=== PATIENT | male | born 1945 | race Caucasian/White ===

== ENCOUNTER 2021-03-09 14:34 | Observation (INO) | payer MEDICARE, BC ==
[~2021-03-09] VITALS: Ht 172.7 cm; Wt 84.4 kg
[2021-03-09] MEDS ORDERED: MECLIZINE 25 MG TABLET PO ONE (15:40)
--- NOTE | 2021-03-09 16:01 | REPVR ---
PROCEDURE INFORMATION: Exam: CT Head Without Contrast Exam date and time: 03/09/2021 3:23 PM Age: 76 years old Clinical indication: Dizziness TECHNIQUE: Imaging protocol: Computed tomography of the head without contrast. Radiation optimization: All CT scans at this facility use at least one of these dose optimization techniques: automated exposure control; mA and/or kV adjustment per patient size (includes targeted exams where dose is matched to clinical indication); or iterative reconstruction. COMPARISON: No relevant prior studies available. FINDINGS: Brain: The brain demonstrates diffuse volume loss. There is white matter hypodensity most consistent with chronic small vessel ischemic change. No visible evolving territorial infarct. No hemorrhage. Cerebral ventricles: The ventricles are enlarged in keeping with volume loss. Paranasal sinuses: Visualized sinuses are unremarkable. No fluid levels. Mastoid air cells: Visualized mastoid air cells are well aerated. Orbital cavity: Thinning of the lenses of the globes consistent with prior lens surgery. Bones/joints: Unremarkable. No acute fracture. Soft tissues: Unremarkable. IMPRESSION: No acute intracranial abnormality seen. Electronically signed by: Gloria Lara On 03/09/2021 16:00:38 PM
[2021-03-09] MEDS ORDERED: LOSA100T50 PO ×2 (16:20→22:21)
[2021-03-09] MEDS ORDERED: DILT240C82 PO (16:20)
[2021-03-09] MEDS ORDERED: COMB0.2S OS (16:20)
[2021-03-09] MEDS ORDERED: COLC0.6T47 PO (16:20)
[2021-03-09 16:21] LABS: BASO # 0.1 10^3/uL (0.0-0.2); BASO % 0.9 % (0.0-1.0); EOS # 0.3 10^3/uL (0.0-0.5); HEMATOCRIT 40.9 % (42.0-52.0); HEMOGLOBIN 13.1 g/dl (13.5-17.5); LYMPH % 17.1 % (24.0-44.0); MEAN CORPUSCULAR HEMOGLOBIN 32.7 pg (27.0-33.0); MONO # 0.5 10^3/uL (0.0-0.8); MONO % 9.4 % (2.0-8.0); NEUTROPHILS # 3.8 10^3/uL (1.5-8.5); NEUTROPHILS % 66.9 % (36.0-66.0); PLATELET COUNT, AUTOMATED 216 10^3/uL (150-450); RED BLOOD COUNT 4.01 10^6/uL (4.30-6.10); WHITE BLOOD COUNT 5.6 10^3/uL (4.0-10.0)
[2021-03-09 16:51] LABS: ALBUMIN 3.3 GM/DL (3.2-5.2); ALT/SGPT 28 U/L (12-78); BILIRUBIN,DIRECT 0.1 MG/DL (0.0-0.2); BILIRUBIN,TOTAL 0.5 MG/DL (0.2-1.0); BLOOD UREA NITROGEN 19 MG/DL (7-18); CALCIUM LEVEL 8.9 MG/DL (8.8-10.2); CARBON DIOXIDE LEVEL 26 MEQ/L (21-32); CHLORIDE LEVEL 111 MEQ/L (98-107); CK-MB VALUE MASS 1.8 NG/ML (<3.6); CPK CREATINE PHOSPHOKINASE 99 U/L (39-308); GLOMERULAR FILTRATION RATE > 60.0 (>42); GLUCOSE, FASTING 125 MG/DL (70-100); MAGNESIUM LEVEL 2.4 MG/DL (1.8-2.4); MB/CK RELATIVE INDEX 1.82 (< OR =4); POTASSIUM SERUM 4.2 MEQ/L (3.5-5.1); SODIUM LEVEL 144 MEQ/L (136-145); TOTAL PROTEIN 6.5 GM/DL (6.4-8.2); TROPONIN I < 0.02 NG/ML (< 0.10)
--- NOTE | 2021-03-09 17:05 | ECGEPIP ---
[facility] - ED Test Date: 2021-03-09 Pat Name: KYE TAMEZ Department: Room: - Gender: Male Gate Watchman: BRENT : 1945 Requested By: KYE CADENA Order Number: [id number] Reading MD: Kye Ríos Measurements Intervals [place] Rate: 68 P: 57 WV: 206 QRS: 71 QRSD: 148 T: 55 QT: 410 QTc: 435 Interpretive Statements Normal sinus rhythm Right bundle branch block Comparison tracing not on file Electronically Signed on 03-09-2021 17:05:06 EDT by Kye Ríos
--- NOTE | 2021-03-09 18:26 | REPVR ---
PROCEDURE INFORMATION: Exam: MRA Head Without Contrast; Arteriography Exam date and time: 03/09/2021 3:15 PM Age: 76 years old Clinical indication: Vertigo; Additional info: Dizziness. Given the clinical concern for stroke, evaluation of the arteries was performed. TECHNIQUE: Imaging protocol: Magnetic resonance angiography head without contrast. Exam focused on the arteries. COMPARISON: 1. CT Head without contrast 03/09/2021 3:21 PM 2. MRI-Brain without Contrast 03/09/2021 5:36:31 PM FINDINGS: ANTERIOR CIRCULATION: Right internal carotid artery: Intracranial segment is patent with no significant stenosis. No significant aneurysm. A 1-2 mm conical outpouching from the supraclinoid right DEVIN, may represent a vascular infundibulum. Right middle cerebral artery: No occlusion or significant stenosis. No aneurysm. Right anterior cerebral artery: No occlusion or significant stenosis. No aneurysm. Left internal carotid artery: Intracranial segment is patent with no significant stenosis. No aneurysm. Left middle cerebral artery: No occlusion or significant stenosis. No aneurysm. Left anterior cerebral artery: No occlusion or significant stenosis. No aneurysm. POSTERIOR CIRCULATION: Right vertebral artery: Developmentally hypoplastic, ends as PICA. No occlusion or significant stenosis. No aneurysm. Left vertebral artery: Dominant. No occlusion or significant stenosis. No aneurysm. Basilar artery: No occlusion or significant stenosis. No aneurysm. Right posterior cerebral artery: No occlusion or significant stenosis. No aneurysm. Left posterior cerebral artery: No occlusion or significant stenosis. No aneurysm. IMPRESSION: No proximal intracranial arterial occlusion. Electronically signed by: Gloria Lara On 03/09/2021 18:26:18 PM
--- NOTE | 2021-03-09 18:31 | REPVR ---
PROCEDURE INFORMATION: Exam: MR Head Without Contrast Exam date and time: 03/09/2021 3:15 PM Age: 76 years old Clinical indication: Dizziness TECHNIQUE: Imaging protocol: MR of the head without contrast. COMPARISON: CT Head without contrast 03/09/2021 3:21 PM FINDINGS: Brain: No acute infarct identified on the diffusion-weighted imaging. No parenchymal hemorrhage. The brain demonstrates mild generalized volume loss. Slight patchy increased signal intensity in the periventricular white matter on the T2 weighted imaging most likely represents trace chronic small vessel ischemic change. No significant white matter disease for the patient's age. Physiologic widening of the left precentral sulcus versus an incidental arachnoid cyst. Cerebral ventricles: The ventricles are mildly enlarged in keeping with volume loss. Bones/joints: Unremarkable. Paranasal sinuses: Mild right sphenoid sinus mucosal thickening. No acute sinusitis. Mastoid air cells: Normal as visualized. No mastoid effusion. Orbital cavity: Thinning of the lenses of the globes consistent with prior lens surgery. Soft tissues: Unremarkable. IMPRESSION: No evidence of acute infarct. Electronically signed by: Gloria Lara On 03/09/2021 18:31:22 PM
[2021-03-09] MEDS ORDERED: hydrALAZINE 20MG/ML 1ML VIAL (J0360 PER 20MG) IV STA ×2 (19:26→20:19)
[2021-03-09 20:58] LABS: RSV AMPLIFICATION NEGATIVE (NEGATIVE)
[2021-03-09] MEDS ORDERED: ASPIRIN 325 MG TAB PO SCH (21:00)
[2021-03-09] MEDS ORDERED: FIBER-CON 625 MG TAB PO SCH (21:00)
[2021-03-09] MEDS ORDERED: ACETAMINOPHEN TAB 650MG DOSE (2X325MG) PO PRN (21:25)
[2021-03-09] MEDS ORDERED: MOM 30ML SUSPENSION UDC PO PRN (21:25)
[2021-03-09] MEDS ORDERED: MAALOX 30 ML SUSP *UDC PO PRN (21:25)
[2021-03-09] MEDS ORDERED: hydrALAZINE 20MG/ML 1ML VIAL (J0360 PER 20MG) IV PRN (21:25)
--- NOTE | 2021-03-09 21:45 | HPEPDOC ---
[facility] Medical History & Physical Date of Admission Mar 09, 2021 Date of Service: Mar 09, 2021 Attending Physician: KEYLA GAUTAM MD History and Physical CHIEF COMPLAINT: Dizziness with near syncope HISTORY OF PRESENT ILLNESS: Mr. Christian is a 76-year-old male who presented to the ER with complaints of dizziness and near syncope. The patient states he felt dizzy and off balance when he tried to get out of bed Saturday morning. He also described a feeling of "tightness" in his cheeks. The feeling persisted throughout the morning, but eventually resolved. He was in his normal state of health until this morning when he was walking with his and neighbor. The patient is staying in the area for the summer. He states this morning he suddenly staggered to the left and almost fell. After that incident, he noticed that the dizziness have returned. After discussions with his it was felt it was in his best interest to be evaluated in the ER. He has a history of essential hypertension and was noted to have a blood pressure of 191/97 on initial evaluation. Patient noted that he was previously taking losartan and hydrochlorothiazide combination pill. He is not sure when that prescription changed and was only made aware when pharmacy discussed medication reconciliation with him this evening. CT of the head was negative for any acute pathology. MRI showed no acute infarct. MRA showed no intracranial arterial occlusion. Labs were essentially unremarkable. Patient was given several doses of hydralazine in the ER with blood pressure noted as high as 209/96. Patient was also tachycardic during my evaluation with heart rate of 117. PAST MEDICAL HISTORY: 1. Hypertension. 2. Gout. 3. Benign prostatic hypertrophy. 4. Chronic kidney disease. 5. Anemia 6. Gastroesophageal reflux disease PAST SURGICAL HISTORY: 1. Hernia repair. 2. Bilateral cataracts SOCIAL HISTORY: Tobacco use: Quit 25 years ago ETOH: Patient states during the summer. He is drinking at least 6-8 beers per night. When he has at home. He does not drink during the week but admits to at least 6-8 beers daily on the weekends. Denies any previous symptoms of withdrawal. Illicit drug use: Negative Patient lives with: His FAMILY HISTORY: Patient's father with a history of lung cancer and coronary artery disease at the age of 58. His mother in her 70s with hypertension, stroke and aneurysm. REVIEW OF SYSTEMS: Complete 10 point review systems is negative except as noted above PHYSICAL EXAMINATION: Patient is seen in the ER, sitting up on the stretcher. He is alert and oriented x 3. HEENT is WNL. There is no facial droop. Tongue is midline. Speech is clear and easily understood. Neck is supple. Lungs are clear to auscultation. Heart regular rate and rhythm without murmur. Abdomen is soft, non-tender to palp ation with bowel sounds positive. Extremities with good ROM and strength equal bilaterally. No lower extremity edema. Pedal pulses are positive. Skin is warm and dry with no obvious rash or lesion. Neuro: grossly intact. Psych: He is pleasant and cooperative. ASSESSMENT AND PLAN: 1. Hypertensive emergency. Will continue home dose of losartan. May need to consider re-adding HCTZ. Will add when necessary hydralazine. Continue to adjust medications as needed based on blood pressure trends. 2. Dizziness with near syncope. CT, MRI and MRA negative. Probably secondary to hypertensive emergency, but there is the possibility of BPPV. Will ask physical therapy to evaluate. 3. Benign prostatic hypertrophy. Patient stated he was on Flomax but this is not listed in the medication reconciliation. We'll try to verify that medication and continue. 4. Gastroesophageal reflux disease. Continue Pepcid. 5. Gout. Resume probenecid and colchicine at discharge. 6. DVT prophylaxis. Will add Lovenox. CODE STATUS: CODE STATUS was discussed with the patient desires to be considered full code. He states his and daughters would act as his surrogates if he were unable to make his own decisions. Patient is considered high risk of further deterioration including syncope and collapse, or possible stroke. He is admitted for close observation and further evaluation and expected to remain at least one midnight. Vital Signs Vital Signs Date Time Temp Pulse Resp B/P (MAP) Pulse Ox O2 Delivery O2 Flow Rate FiO2 03/09/21 20:55 170/80 03/09/21 20:07 90 16 98 Room Air 03/09/21 19:05 98.6 Laboratory Data Labs 24H Laboratory Tests 2 03/09/21 16:10: Immature Granulocyte % (Auto) 0.7, Neutrophils (%) (Auto) 66.9H, Lymphocytes (%) (Auto) 17.1L, Monocytes (%) (Auto) 9.4H, Eosinophils (%) (Auto) 5.0H, Basophils (%) (Auto) 0.9, Neutrophils # (Auto) 3.8, Lymphocytes # (Auto) 1.0L, Monocytes # (Auto) 0.5, Eosinophils # (Auto) 0.3, Basophils # (Auto) 0.1, Nucleated Red Blood Cells % (auto) 0.0, Anion Gap 7L, Glomerular Filtration Rate > 60.0, Calcium Level 8.9, Magnesium Level 2.4, Total Bilirubin 0.5, Direct Bilirubin 0.1, Aspartate Amino Transf (AST/SGOT) 17, Alanine Aminotransferase (ALT/SGPT) 28, Alkaline Phosphatase 71, Total Creatine Kinase 99, Creatine Kinase MB 1.8, Creatine Kinase MB Relative Index 1.82, Troponin I < 0.02, Total Protein 6.5, Albumin 3.3, Albumin/Globulin Ratio 1.0, Thyroid Stimulating Hormone (TSH) 1.810 03/09/21 20:07: Coronavirus (COVID-19)(PCR) NEGATIVE, Influenza Type A (RT-PCR) NEGATIVE, Influenza Type B (RT-PCR) NEGATIVE, Respiratory Syncytial Virus (PCR) NEGATIVE CBC/BMP Laboratory Tests 03/09/21 16:10 Home Medications Scheduled Aspirin (Aspirin) 325 Mg Tablet, 325 MG PO QHS Brimonidine Tartrate/Timolol (Combigan 0.2%-0.5% Eye Drops) 5 Ml Drops, 1 DROP OU BID Calcium Polycarbophil (Fibercon) 625 Mg Tablet, 1,250 MG PO QHS Diltiazem HCl (Dilt-Xr) 240 Mg Cap.er.deg, 240 MG PO DAILY Famotidine (Pepcid) 20 Mg Tablet, 20 MG PO AC Losartan Potassium (Losartan Potassium) 100 Mg Tablet, 100 MG PO DAILY Multivitamins (Thera M Plus Tablet) 1 Each Tablet, 1 TAB PO QHS Probenecid/Colchicine (Probenecid-Colchicine Tabs) 1 Each Tablet, 1 TAB PO QHS Allergies Coded Allergies: Sulfa (Sulfonamide Antibiotics) (Verified Allergy, Unknown, 03/09/21) "I was a baby I don't know". A-FIB/CHADSVASC A-FIB History Current/History of A-Fib/PAF?: No MARYANN RODRIGUEZ Mar 09, 2021 21:45
[2021-03-09] MEDS ORDERED: ASPI-1 PO (22:21)
[2021-03-09] MEDS ORDERED: PEPC1TAB5 PO (22:21)
[2021-03-09] MEDS ORDERED: DILT240C28 PO (22:21)
[2021-03-09] MEDS ORDERED: COMB0.2S OU (22:21)
[2021-03-09] MEDS ORDERED: FIBE625T PO (22:21)
[2021-03-09] MEDS ORDERED: VITMTA PO (22:21)
[2021-03-09] MEDS ORDERED: COLBTA PO (22:21)
[2021-03-10 06:21] VITALS: BP 167/84
[2021-03-10 06:53] LABS: HEMOGLOBIN 13.6 g/dl (13.5-17.5); MEAN CORPUSCULAR HEMOGLOBIN 33.6 pg (27.0-33.0); MEAN CORPUSCULAR HGB CONC 33.2 g/dl (32.0-36.5); MEAN CORPUSCULAR VOLUME 101.2 fl (80.0-96.0); PLATELET COUNT, AUTOMATED 194 10^3/uL (150-450); RED BLOOD COUNT 4.05 10^6/uL (4.30-6.10); WHITE BLOOD COUNT 6.1 10^3/uL (4.0-10.0)
[2021-03-10 07:23] LABS: BLOOD UREA NITROGEN 19 MG/DL (7-18); CALCIUM LEVEL 8.6 MG/DL (8.8-10.2); CARBON DIOXIDE LEVEL 27 MEQ/L (21-32); CHLORIDE LEVEL 111 MEQ/L (98-107); CREATININE FOR GFR 1.22 MG/DL (0.70-1.30); GLOMERULAR FILTRATION RATE > 60.0 (>42); GLUCOSE, FASTING 100 MG/DL (70-100); MAGNESIUM LEVEL 2.4 MG/DL (1.8-2.4); POTASSIUM SERUM 4.2 MEQ/L (3.5-5.1); SODIUM LEVEL 142 MEQ/L (136-145)
[2021-03-10 08:15] VITALS: BP 156/90
[2021-03-10] MEDS: FAMOTIDINE 20 MG TAB PO SCH ×2 (08:27→12:09)
[2021-03-10 08:28] VITALS: BP 156/90
[2021-03-10] MEDS ORDERED: ENOXAPARIN 40MG/0.4ML SYRINGE (J1650 PER 10MG) SC SCH (09:00)
[2021-03-10] MEDS ORDERED: LOSARTAN 50MG TABLET PO SCH (09:00)
--- NOTE | 2021-03-10 11:21 | DS.PDOC ---
Discharge Summary General Date of Admission Mar 09, 2021 at 14:35 Date of Discharge 03/10/21 Discharge Summary PROCEDURES PERFORMED DURING STAY: [None]. DISCHARGE DIAGNOSES: Left-sided BPPV SECONDARY DIAGNOSIS: Hypertension. Gout. Benign prostatic hypertrophy. Chronic kidney disease. Anemia Gastroesophageal reflux disease COMPLICATIONS/CHIEF COMPLAINT: Hypertensive Emergency. HOSPITAL COURSE: Mr. Christian is a 76-year-old male who presented to the ER with complaints of dizziness and near syncope. The patient states he felt dizzy and off balance when he tried to get out of bed Saturday morning. He also described a feeling of "tightness" in his cheeks. The feeling persisted throughout the morning, but eventually resolved. He was in his normal state of health until the morning of admission when he was walking with his and neighbor. The patient is staying in the area for the summer. He states this morning he suddenly staggered to the left and almost fell. After that incident, he noticed that the dizziness have returned. After discussions with his it was felt it was in his best interest to be evaluated in the ER. He has a history of essential hypertension and was noted to have a blood pressure of 191/97 on initial evaluation. Patient noted that he was previously taking losartan and h ydrochlorothiazide combination pill. He is not sure when that prescription changed and was only made aware when pharmacy discussed medication reconciliation with him this evening. CT of the head was negative for any acute pathology. MRI showed no acute infarct. MRA showed no intracranial arterial oc clusion. Labs were essentially unremarkable. Patient was admitted for hypertensive urgency which has resolved overnight. This morning he was evaluated by physical therapy and was found to have left-sided BPPV. Physical therapy recommended out patient PT. at present patient does not have any sympt oms his blood pressure is controlled and he is being discharged home DISCHARGE MEDICATIONS: Please see below. ALLERGIES: Please see below. PHYSICAL EXAMINATION ON DISCHARGE: VITAL SIGNS: Please see below. GENERAL: Alert oriented sitting up in bed in no discomfort HEENT: Normocephalic, atraumatic, moist mucous membranes, anicteric eyes NECK: Supple, no JVD CARDIOVASCULAR EXAMINATION: Normal S1, normal S2, regular heart sounds, no rub murmur or gallop RESPIRATORY EXAMINATION: Bilateral vesicular breath sounds no added sounds ABDOMINAL EXAMINATION: Soft nontender bowel sounds normal EXTREMITIES: No edema SKIN: No rash or lesion NEUROLOGICAL EXAMINATION: No focal neuro deficit, speech normal, gait normal LABORATORY DATA: Please see below. Imaging: MRI of brain: Brain: No acute infarct identified on the diffusion-weighted imaging. No parenchymal hemorrhage. The brain demonstrates mild generalized volume loss. Slight patchy increased signal intensity in the periventricular white matter on the T2 weighted imaging most likely represents trace chronic small vessel ischemic change. No significant white matter disease for the patient's age. Physiologic widening of the left precentral sulcus versus an incidental arachnoid cyst. Cerebral ventricles: The ventricles are mildly enlarged in keeping with volume loss. Bones/joints: Unremarkable. Paranasal sinuses: Mild right sphenoid sinus mucosal thickening. No acute sinusitis. Mastoid air cells: Normal as visualized. No mastoid effusion. Orbital cavity: Thinning of the lenses of the globes consistent with prior lens surgery. Soft tissues: Unremarkable. IMPRESSION: No evidence of acute infarct. MRA of brain: ANTERIOR CIRCULATION: Right internal carotid artery: Intracranial segment is patent with no significant stenosis. No significant aneurysm. A 1-2 mm conical outpouching from the supraclinoid right DEVIN, may represent a vascular infundibulum. Right middle cerebral artery: No occlusion or significant stenosis. No aneurysm. Right anterior cerebral artery: No occlusion or significant stenosis. No aneurysm. Left internal carotid artery: Intracranial segment is patent with no significant stenosis. No aneurysm. Left middle cerebral artery: No occlusion or significant stenosis. No aneurysm. Left anterior cerebral artery: No occlusion or significant stenosis. No aneurysm. POSTERIOR CIRCULATION: Right vertebral artery: Developmentally hypoplastic, ends as PICA. No occlusion or significant stenosis. No aneurysm. Left vertebral artery: Dominant. No occlusion or significant stenosis. No aneurysm. Basilar artery: No occlusion or significant stenosis. No aneurysm. Right posterior cerebral artery: No occlusion or significant stenosis. No aneurysm. Left posterior cerebral artery: No occlusion or significant stenosis. No aneurysm. IMPRESSION: No proximal intracranial arterial occlusion. ACTIVITY: [As tolerated]. DIET: Regular DISCHARGE PLAN: Home DISPOSITION: . DISCHARGE INSTRUCTIONS: Follow-up with PMD in 2 weeks Continue outpatient physical therapy DISCHARGE CONDITION: [Stable]. TIME SPENT ON DISCHARGE: 35 minutes. Vital Signs/I&Os Vital Signs Date Time Temp Pulse Resp B/P (MAP) Pulse Ox O2 Delivery O2 Flow Rate FiO2 03/10/21 08:28 156/90 03/10/21 08:28 84 03/10/21 08:15 97.4 18 95 Room Air Laboratory Data Labs 24H Laboratory Tests 2 03/09/21 16:10: Immature Granulocyte % (Auto) 0.7, Neutrophils (%) (Auto) 66.9H, Lymphocytes (%) (Auto) 17.1L, Monocytes (%) (Auto) 9.4H, Eosinophils (%) (Auto) 5.0H, Basophils (%) (Auto) 0.9, Neutrophils # (Auto) 3.8, Lymphocytes # (Auto) 1.0L, Monocytes # (Auto) 0.5, Eosinophils # (Auto) 0.3, Basophils # (Auto) 0.1, Nucleated Red Blood Cells % (auto) 0.0, Anion Gap 7L, Glomerular Filtration Rate > 60.0, Calcium Level 8.9, Magnesium Level 2.4, Total Bilirubin 0.5, Direct Bilirubin 0.1, Aspartate Amino Transf (AST/SGOT) 17, Alanine Aminotransferase (ALT/SGPT) 28, Alkaline Phosphatase 71, Total Creatine Kinase 99, Creatine Kinase MB 1.8, Creatine Kinase MB Relative Index 1.82, Troponin I < 0.02, Total Protein 6.5, Albumin 3.3, Albumin/Globulin Ratio 1.0, Thyroid Stimulating Hormone (TSH) 1.810 03/09/21 20:07: Coronavirus (COVID-19)(PCR) NEGATIVE, Influenza Type A (RT-PCR) NEGATIVE, I nfluenza Type B (RT-PCR) NEGATIVE, Respiratory Syncytial Virus (PCR) NEGATIVE 03/10/21 06:38: Nucleated Red Blood Cells % (auto) 0.0, Anion Gap 4L, Glomerular Filtration Rate > 60.0, Calcium Level 8.6L, Magnesium Level 2.4 CBC/BMP Laboratory Tests 03/09/21 16:10 03/10/21 06:38 Discharge Medications Scheduled Aspirin (Aspirin) 325 Mg Tablet, 325 MG PO QHS, (Reported) Brimonidine Tartrate/Timolol (Combigan 0.2%-0.5% Eye Drops) 5 Ml Drops, 1 DROP OU BID, (Reported) Calcium Polycarbophil (Fibercon) 625 Mg Tablet, 1,250 MG PO QHS, (Reported) Diltiazem HCl (Dilt-Xr) 240 Mg Cap.er.deg, 240 MG PO DAILY, (Reported) Famotidine (Pepcid) 20 Mg Tablet, 20 MG PO AC, (Reported) Losartan Potassium (Losartan Potassium) 100 Mg Tablet, 100 MG PO DAILY, (Report ed) Multivitamins (Thera M Plus Tablet) 1 Each Tablet, 1 TAB PO QHS, (Reported) Probenecid/Colchicine (Probenecid-Colchicine Tabs) 1 Each Tablet, 1 TAB PO QHS, (Reported) Allergies Coded Allergies: Sulfa (Sulfonamide Antibiotics) (Verified Allergy, Unknown, 03/09/21) "I was a baby I don't know". ADRIANA MOORE MD Mar 10, 2021 11:21
[2021-03-10 12:00] VITALS: BP 140/82
== END 2021-03-10 13:41 | disposition home or self-care (01) ==
LOC: M ED 14:34 → M ED INP 14:35 → M PCU 03-10 06:18
PROVIDERS: ADMIT Internal Medicine; ATTEND Internal Medicine
DX: I16.0 Hypertensive urgency (principal); H81.12 Benign paroxysmal vertigo, left ear; R00.0 Tachycardia, unspecified; I67.848 Other cerebrovascular vasospasm and vasoconstriction; I10 Essential (primary) hypertension; M10.9 Gout, unspecified; K21.9 Gastro-esophageal reflux disease without esophagitis; N40.0 Benign prostatic hyperplasia without lower urinary tract symptoms; N18.9 Chronic kidney disease, unspecified; D64.9 Anemia, unspecified; Z79.899 Other long term (current) drug therapy; Z79.82 Long term (current) use of aspirin; Z88.2 Allergy status to sulfonamides; Z87.891 Personal history of nicotine dependence
CPT/HCPCS: 36415; 70450; 70544; 70551; 80048; 80076; 82550; 82553; 83735; 84443; 84484; 85025; 85027; 87631; 93005; 93041; 94760; 96372; 96374; 96376; 97112; 97161; 99285; G0378; J0360; J1650